=== PATIENT | female | born 1950 | race Caucasian/White ===

== ENCOUNTER 2016-10-24 12:40 | Inpatient (IN) | payer OTHER, BC ==
[~2016-10-24] VITALS: Ht 167.6 cm; Wt 142.0 kg
[2016-10-24] VITALS (12 sets, daily range): BP systolic 98–177; BP diastolic 34–147
--- NOTE | ~2016-10-24 | HC ---
[facility] [place] [address] CONSULTATION Name: CECILY BUSH Room #: 239- ADM IN M.R.#: [id number] Admission: 10/24/16 Attend Phys: Waldemar Cleary MD Discharge: Date of : 46 Report #: [id number] THIS REPORT FOR: //name// CC: Waldemar Roa REASON FOR CONSULTATION: I was asked to evaluate concerning sepsis in the setting of MRSA bacteremia and critical aortic stenosis. HISTORY OF PRESENT ILLNESS: The patient was a 66-year-old who presents from [facility] where she is being treated for Staphylococcus aureus bacteremia in the setting of aortic stenosis. She does have morbid obesity, chronic venous stasis disease with lower extremity wounds. She was on vancomycin approximately 3 weeks into her treatment course. She became more confused. She was in the emergency room where there was concern for congestive heart failure, possible urinary tract infection and she was placed on the floor only to be transferred to to the ICU for further treatment. Her pCO2 was increased significantly and she is placed on BiPAP. Once on BiPAP, she has stabilized some and calmed down from her confusional state. It is noted that on the 20 of October, laboratory studies showed a hemoglobin of 8.6, WBC of 5.9, platelet count 159,000. Creatinine was 1.1, sedimentation rate 24, vancomycin trough was 18.9. There has been no cough or sputum production. No nausea, vomiting or diarrhea. She does have an indwelling Mcdonough catheter. MEDICATIONS: As noted on her MAR including the vancomycin. Meropenem was added today. PAST MEDICAL HISTORY: Aortic stenosis, atrial fibrillation, diabetes, cholecystectomy, venous stasis disease, osteoarthritis, chronic kidney disease, gastroesophageal reflux, gastritis, anemia of chronic disease, morbid obesity, claustrophobia, anxiety, obstructive sleep apnea, chronic pain, hypertension, diastolic congestive heart failure. FAMILY HISTORY: Noncontributory. SOCIAL HISTORY: She has been residing in the nursing home unit, nonsmoker, no significant alcohol intake. REVIEW OF SYSTEMS: As noted above. The patient was unable to give any further details. PHYSICAL EXAMINATION: VITAL SIGNS: She was afebrile. Vital signs were stable. GENERAL: She was on BiPAP. She was confused. Morbidly obese. HEENT: Unremarkable. NECK: Supple. NEUROLOGIC: Nonfocal. [address] [address] CONSULTATION Name: CECILY BUSH Room #: 239-[facility] IN M.R.#: [id number] Admission: 10/24/16 Attend Phys: Waldemar Cleary MD Discharge: Date of : 48 Report #: [id number] LUNGS: Few crackles heard in the bases posteriorly. HEART: Regular with a harsh systolic murmur heard at left sternal border. ABDOMEN: Obese, soft, nontender, no hepatosplenomegaly or mass. GENITOURINARY: She had indwelling Mcdonough catheter. EXTREMITIES: She had changes of chronic venous stasis to both lower extremities with shallow ulcerations. No evidence of cellulitis or purulent drainage. LABORATORY STUDIES: Sodium 143, potassium 4.9, bicarbonate of 44, creatinine 1.1, bilirubin 1.3, GFR was 49, lactate 1.2, troponin 0.06. BNP 17,329. Hemoglobin 7.4, WBC 4.4, platelet count 87,000 with 72% segs, 14% lymphs. TSH 0.8. Urinalysis; many wbc's, few bacteria, yeast present. ABG on 5 liters showed a pO2 of 89, pCO2 of 77, pH 7.36, lactate 1.4. Blood and urine cultures pending. IMAGING: Chest x-ray; bilateral infiltrates, right pleural effusion, mass lesion upper lateral aspect of the left lung. Venous ultrasound of the lower extremities negative for DVT. CT scan of the head; negative intracranial process, mild to moderate left mastoid fluid. CT scan of the chest and abdomen is currently pending. IMPRESSION: A 66-year-old with bilateral pulmonary infiltrates, evidence of cystitis, hypercapnia with confusional state in the setting of treatment for methicillin-resistant Staphylococcus aureus bacteremia and critical aortic stenosis. I am suspicious that we may be dealing with endocarditis. Other issue is her chest x-ray which shows concerning left lung mass lesion. Could also be dealing with aspiration nosocomial pneumonia. The patient has significant comorbidities. She is critically ill at this point in time considering her complex medical comorbidities. RECOMMENDATION: We will continue ICU monitoring. Await CT scan report. Obtain echocardiogram. Await repeat blood cultures. Continue broad-spectrum antibiotic therapy with vancomycin and meropenem along with fluconazole due to yeast identified in her urine. I have discussed with nursing staff at the bedside. Chart was reviewed including the medical record from [facility], pulmonary and GI services along with her records from nursing home unit. <ELECTRONICALLY SIGNED> By: Ovidio Boles MD 10/27/16 1212 [id number] Ovidio Boles MD /nt
--- NOTE | ~2016-10-24 | HC ---
[facility] [place] [address] CONSULTATION Name: CECILY BUSH Room #: 419-P [facility] IN M.R.#: [id number] Admission: 10/24/16 Attend Phys: Waldemar Cleary MD Discharge: Date of : 48 Report #: [id number] THIS REPORT FOR: //name// CC: Waldemar Roa DATE OF SERVICE: 10/24/2016 REASON FOR CONSULTATION: Hypercapnic respiratory failure. Forty minutes critical care time. IMPRESSION: 1. Hypercapnic respiratory failure. 2. Likely sepsis. 3. Methicillin-resistant Staphylococcus aureus bacteremia. 4. Critical aortic stenosis. 5. Atrial fibrillation. 6. Obstructive sleep apnea. 7. Chronic venous insufficiency. 8. Diabetes. HISTORY OF PRESENT ILLNESS: A 66-year-old female comes in with history of Staphylococcus aureus bacteremia, critical aortic stenosis, atrial fibrillation, comes in with decreased mental status. No definite chest pain, shortness of breath. She is confused. Sister is in the room. MEDICATIONS: Includes aspirin, Lasix, prednisone, Tradjenta, vancomycin, Eliquis, metoprolol. ALLERGIES: PENICILLIN. FAMILY HISTORY: Noncontributory. SOCIAL HISTORY: Negative current tobacco or ETOH. REVIEW OF SYSTEMS: Atrial fibrillation, aortic stenosis, lymphedema, wounds, cellulitis, UTI, osteoarthritis, CKD, pneumonia, respiratory failure, [place], anemia, type 2 diabetes, morbid obesity, claustrophobia, anxiety, chronic pain, atrial fibrillation, diastolic CHF. PHYSICAL EXAMINATION: VITAL SIGNS: On exam, temperature 98.2, pulse 65, respirations 20, BP 124/74. EYES: Negative icterus. NECK: Negative JVD. LUNGS: Decreased breath sounds, right greater than left. [facility] [address] [place] [address] CONSULTATION Name: CECILY BUSH Room #: 419-P ADM IN M.R.#: [id number] Admission: 10/24/16 Attend Phys: Waldemar Cleary MD Discharge: Date of : 46 Report #: [id number] HEART: Irregular with murmur. ABDOMEN: Bowel sounds present. EXTREMITIES: Showed legs wrapped. Positive edema and wounds noted, difficult to discuss with the patient, feels like she has seen me in the past. We discussed this. LABORATORY DATA: Bacteria 1-9, wbc greater than 25. Chest x-ray showed bilateral infiltrates and right effusion, questionable mass. BUN 32, creatinine 1.1, albumin 2.9. ProBNP 17,329. White count 4.4, hemoglobin 7.8, platelets 87, pH 7.36, pCO2 of 77, pO2 of 90 on 5 liters, lactate 1.43. Appreciate the opportunity to assist in the care of your patient. By: [id number] Parul Scanlon MD /nt
--- NOTE | ~2016-10-24 | H ---
[facility] [place] [address] HISTORY AND PHYSICAL Name: CECILY BUSH Room #: 239-P ADM IN M.R.#: [id number] Admission: 10/24/16 Attend Phys: Waldemar Cleary MD Discharge: Date of : 48 Report #: [id number] THIS REPORT FOR: //name// CC: Waldemar Roa DATE OF SERVICE: 10/25/2016 CHIEF COMPLAINT: This is a patient 66 years of age, well known to my service with chronic respiratory failure HISTORY OF PRESENT ILLNESS: This is a patient who has been off and on over at [facility] and really it is total care, is really not able to function in an independent living situation and has a known history of critical aortic stenosis, but has not been a candidate for intervention due to many of the psychosocial issues that we have been dealing with now for many months. The patient was recently in the hospital and had high-grade MRSA bacteremia. Etiology probably was lower extremity open wounds from venous insufficiency. She probably had an element of pneumonia. She has underlying sleep apnea and she again got ill over at the detention. We tried to manage her there as best we could, but I viewed her situation yesterday, that impending respiratory failure was about ready to happen and she was transferred over here and placed in the ICU. PAST MEDICAL HISTORY: Noteworthy for those findings in the HPI, morbid obesity, obstructive sleep apnea, critical aortic stenosis, chronic venous insufficiency with ulceration and very poor insight into her situation. MEDICATIONS: List is well documented on the record. FAMILY HISTORY: Noncontributory. SOCIAL HISTORY: She is currently living at [facility] has very limited family and friends and support. REVIEW OF SYSTEMS: Not obtainable. PHYSICAL EXAMINATION: GENERAL: Shows her to be awake, but confused. She is currently on BiPAP. CHEST: Diminished. CARDIOVASCULAR: Shows a regular rate and rhythm with occasional ectopic. ABDOMEN: Soft and nontender, without hepatosplenomegaly. EXTREMITIES: Showed the changes of chronic venous insufficiency with ulceration. She had some irritation on her buttock as well. ASSESSMENT: [facility] [address] [place] [address] HISTORY AND PHYSICAL Name: CECILY BUSH Room #: [facility] IN M.R.#: [id number] Admission: 10/24/16 Attend Phys: Waldemar Cleary MD Discharge: Date of : 48 Report #: [id number] 1. This is a patient with respiratory failure, on multifactorial basis and I suspect overall terminal condition, but currently she wishes to have full resuscitative support. She also has high-grade MRSA bacteremia which was being controlled with IV vancomycin and she was in the middle course. 2. Critical aortic stenosis. 3. Chronic venous insufficiency with lower extremity wounds. Overall I view her care as terminal, but we are doing what we can to manage her as best we can. By: [id number] Claudio Boles MD /
--- NOTE | ~2016-10-24 | HC ---
[facility] [place] [address] [place] [address] CONSULTATION Name: CECILY BUSH Room #: 239-P ADM IN M.R.#: [id number] Admission: 10/24/16 Attend Phys: Waldemar Cleary MD Discharge: Date of : 48 Report #: [id number] THIS REPORT FOR: //name// CC: Waldemar Roa DATE OF SERVICE: 10/24/2016 REASON FOR CONSULTATION: The patient is a 66-year-old woman admitted through the emergency room with increasing shortness of breath and anemia with Hemoccult positive stools. HISTORY OF PRESENT ILLNESS: This patient apparently recently has been having confusion and hallucinations. She is awake and she is alert, but she makes no sense whatsoever. I did obtain some history from a sister sitting at bedside. This 66-year-old woman was admitted recently at [facility] because of worsening of lower extremity wounds. She was treated at [place] and transferred to [facility] where she has been undergoing care. Family got a phone call today that she was more short of breath and she was transferred to [facility] where she was subsequently admitted. Here, she was found to have a hemoglobin of 7.8 with an MCV of 93.1. On the , she had a hemoglobin of 8.2 and on the she had a hemoglobin of 8.6. Unfortunately, there is a little previous history known. As best the sister knows, she has never had any stomach or ulcer problems and she has never had any evaluation with upper endoscopy and colonoscopy: The patient is not able to provide any useful information, so it is not clear whether she has had any symptoms whatsoever. In addition, there are some records from [facility] indicates the patient has critical aortic stenosis. She has not been a candidate for intervention in the past. Also, she was treated at [facility] for methicillin-resistant Staphylococcus aureus bacteremia. PAST MEDICAL HISTORY: Leg wounds, atrial fibrillation, shortness of breath, diabetes. PAST SURGICAL HISTORY:. Cholecystectomy. ALLERGIES: PENICILLINS. TRANSFER MEDICINES: Hydrocodone 7.5/325, DuoNeb, Eliquis, aspirin 81 mg daily, furosemide 40 mg daily, metoprolol 25 mg daily, miconazole topically b.i.d., Tradjenta 5 mg daily, prednisone 10 mg daily, vancomycin 1.25 g IV daily. [address] [address] CONSULTATION Name: CECILY BUSH Room #: 239-P [facility] IN M.R.#: [id number] Admission: 10/24/16 Attend Phys: Waldemar Cleary MD Discharge: Date of : 46 Report #: [id number] FAMILY HISTORY: No known family history of colon cancer. SOCIAL HISTORY: She has never smoked. She drank alcohol in the past, but according to the sister, she never had an alcohol problem. REVIEW OF SYSTEMS: Unobtainable due to the patient's confusion. PHYSICAL EXAMINATION: GENERAL: The patient a morbidly obese woman in no acute distress. She is resting comfortably on the ER carts. She is awake and alert, but she is confused. VITAL SIGNS: Blood pressure 124/74, pulse 65. HEENT: Anicteric. Pupils equal and round. Oropharynx clear. NECK: Supple. CHEST: Clear anteriorly. HEART: Regular rate and rhythm, normal S1 and S2. ABDOMEN: Morbidly obese, normal bowel sounds, soft, nontender, without hepatosplenomegaly or masses. RECTAL: Not done. EXTREMITIES: Bilateral edema. She has bandages on both lower extremities, which were not removed. NEUROLOGIC: She is moving all 4 extremities. She is awake, alert, but confused. LABORATORY DATA: Hemoglobin as noted above. Sodium, potassium, and chloride are normal. CO2 is 44. BUN is 32, creatinine 1.1. Total bilirubin is 1.3. AST and ALT are normal. Alkaline phosphatase normal. BNP is 17,329. Albumin is 2.9. IMAGING: Chest x-ray reveals bilateral infiltrates, thought to represent pneumonia. There is a questionable mass lesion at the upper left aspect of the left lung. She just left the ER department to go to radiology for CT. ASSESSMENT: 1. Normochromic anemia with Hemoccult-positive stools. 2. Altered mental status. 3. Critical aortic stenosis. 4. Shortness of breath. 5. Morbid obesity. 6. Leg wounds. 7. Atrial fibrillation, on Eliquis. RECOMMENDATIONS: 1. Hold Eliquis. 2. Monitor hemoglobin. 3. Prone pump inhibitor. [address] [address] CONSULTATION Name: CECILY BUSH Room #: 239-P ADM IN M.R.#: [id number] Admission: 10/24/16 Attend Phys: Waldemar Cleary MD Discharge: Date of : 46 Report #: [id number] 4. Consider upper endoscopy when safe to do so, may be difficult with her valvular heart disease and her shortness of breath and altered mental status. 5. I think it is unlikely we would ever be able to do a colonoscopy on this patient. By: [id number] [id number] Elliot Mccord MD /nt
--- NOTE | ~2016-10-24 | EKG ---
[address] [address] ELECTROCARDIOGRAM REPORT Name: CECILY BUSH Room #: 239-P ADM IN M.R.#: [id number] Admission: 10/24/16 Attend Phys: Waldemar Cleary MD Discharge: Date of : 46 Report #: [id number] THIS REPORT FOR: //name// [facility] ED Test Date: 2016-10-24 Test Time: 13:16:06 Pat Name: CECILY BUSH Department: Room: 239 Gender: F Rn Cardiac: VAL : 1950 Requested By: Frandy Gomez Order Number: [id number] MD: Samir Quinones Measurements Intervals [place] Rate: 62 P: MD: QRS: 39 QRSD: 85 T: 43 QT: 397 QTc: 404 Interpretive Statements Atrial fibrillation Ventricular premature complex No previous ECG available for comparison Electronically Signed On 10-25-2016 9:51:27 CDT by Samir Quinones [email or web address] <ELECTRONICALLY SIGNED> By: Samir Quinones MD, [facility] 10/25/16 0951 1316 1316 Samir Quinones MD, FACC /EPI
--- NOTE | ~2016-10-24 | 2DMMODE ---
[facility] [address] [place] [address] 2 D/M-MODE ECHOCARDIOGRAM Name: CECILY BUSH Room #: 239-P ADM IN M.R.#: [id number] Admission: 10/24/16 Attend Phys: Rani Lofton Discharge: Date of : 46 Date of Service: 10/25/16 1119 Report #: [id number] THIS REPORT FOR: //name// APPROVED REPORT Study performed: 10/25/2016 09:52:09 EXAM: Comprehensive 2D, Doppler, and color-flow Echocardiogram Patient Location: Bedside Room #: 239 Status: on-call BSA: 2.42 HR: 84 bpm BP: 136/95 mmHg Rhythm: Atrial Fibrillation Other Information Study Quality: Adequate Risk Factors: Cardiac Risk Factors: DM Indications Aortic Valve Disease COPD Atrial Fibrillation Sepsis 2D Dimensions LVEF(%): 45.00 (>50%) IVSd: 16.09 (7-11mm) LVOT Diam: 19.00 (18-24mm) LVDd: 48.93 mm PWd: 15.37 (7-11mm) Ascending Ao: 32.11 (22-36mm) LVDs: 39.10 (25-40mm) Aortic Root: 26.84 mm Volumes Left Atrial Volume (Systole) Single Plane 4CH: 98.70 mL Single Plane 2CH: 82.06 mL LA ESV Index: 41.00 mL/m2 Aortic Valve AoV Peak Ant.: 3.54 m/s AO Peak Gr.: 52.86 mmHg LVOT Max P.88 mmHg AO Mean Gr.: 31.68 mmHg LVOT Mean P.29 mmHg [facility] [address] [place] [place] [address] 2 D/M-MODE ECHOCARDIOGRAM Name: CECILY BUSH Room #: 239-P [facility].#: [id number] Admission: 10/24/16 Attend Phys: Rani Lofton Discharge: Date of : 46 Date of Service: 10/25/16 1119 Report #: [id number] AO V2 Mean: 2.55 m/s LVOT Max V: 0.98 m/s AO V2 VTI: 79.46 cm LVOT Mean V: 0.70 m/s BEVERLY (VTI): 0.80 cm2 LVOT V1 VTI: 22.74 cm BEVERLY Vmax: 0.78 cm2 SV (LVOT): 63.94 mL Pulmonary Valve PV Peak Ant.: 1.13 m/s PV Peak Gr.: 5.11 mmHg Tricuspid Valve TR Peak Ant.: 3.53 m/s RAP Estimate: 10.00 mmHg TR Peak Gr.: 50.25 mmHg PA Pressure: 60.00 mmHg Left Ventricle The left ventricle is normal size. There is normal LV segmental wall motion. Mild to moderate concentric left ventricular hypertrophy. Left ventricular systolic function is mildly decreased. LVEF is 55% This study is not technically sufficient to allow evaluation of the LV diastolic function due to atrial fibrillation. Right Ventricle Right ventricle is dilated. The right ventricular systolic function is normal. Atria Left atrium is mild to moderately dilated. Right atrium is dilated. Aortic Valve Aortic valve is calcified, probably trileaflet. Trace aortic regurgitation. Moderate to severe aortic stenosis. Aortic Valve Area is 0.8cm2. Calculated aortic valve area is 0.8 cm2 with maximum pressure gradient of 89 mmHg and mean pressure gradient of 56 mmHg. Mitral Valve Moderate mitral annular calcification. Mild to moderate mitral regurgitation. No evidence of mitral valve stenosis. Tricuspid Valve The tricuspid valve is normal in structure. Moderate to severe tricuspid regurgitation. Pulmonary Artery pressure is 60mmHg. Pulmonic Valve [address] [address] 2 D/M-MODE ECHOCARDIOGRAM Name: CECILY BUSH Room #: 239-P [facility] IN .R.#: [id number] Admission: 10/24/16 Attend Phys: Rani Lofton Discharge: Date of : 46 Date of Service: 10/25/16 1119 Report #: [id number] The pulmonary valve is normal in structure. Trace to mild pulmonic regurgitation. Great Vessels The aortic root is normal in size. IVC is dilated and collapses <50% with inspiration. Pericardium There is no pericardial effusion. <Conclusion> Normal global left ventricular function LVEF is 55%. Normal LV segmental wall motion. Right ventricle is dilated. Left atrium is mild to moderately dilated. Right atrial enlargement Aortic valve is calcified, probably trileaflet. Calculated aortic valve area is 0.8 cm2 with maximum pressure gradient of 89 mmHg and mean pressure gradient of 56 mmHg, consistent with severe aortic stenosis. Moderate mitral annular calcification. Mild to moderate mitral regurgitation. Pulmonary artery pressure of 60mmHg There is no pericardial effusion. <ELECTRONICALLY SIGNED> By: Samir Quinones MD, FACC 10/25/16 1119 1119 1119 Samir Quinones MD, FACC /INF
--- NOTE | ~2016-10-24 | HC ---
[facility] [place] [address] CONSULTATION Name: CECILY BUSH Room #: 453-P [facility] [place] .R.#: [id number] Admission: 10/24/16 Attend Phys: Waldemar Cleary MD Discharge: Date of : 46 Report #: [id number] THIS REPORT FOR: //name// CC: Waldemar Roa DATE OF SERVICE: 10/28/2016 PERSONAL PHYSICIAN: Keven Boles M.D. CHIEF COMPLAINT: Left leg ulcer. HISTORY OF PRESENT ILLNESS: This is a 66-year-old white female who is morbidly obese who has currently been admitted for chronic respiratory failure. I have been asked to assist in the care of ulcerations on her left lower extremity. The patient states she has a history of chronic ulcerations on bilateral lower extremities, but the right one has essentially healed. The patient has chronic venous insufficiency with edema and at this time is currently refusing any type of compressive therapy. The nursing staff stated on admission there was a question whether she had a stage 2 decubitus ulcer on her sacrococcygeal region; however, the patient at this point in time states that that is healed and is refusing to turn over for us to evaluate it. I have been asked to assist in the care of these ulcerations while she is here in the hospital. PAST MEDICAL HISTORY: Significant for morbid obesity, obstructive sleep apnea, critical aortic stenosis, chronic venous insufficiency with edema and ulcerations. CURRENT MEDICATIONS: Multiple. I reviewed his medication list. DRUG ALLERGIES: PENICILLIN. SOCIAL HISTORY: The patient currently lives in a skilled facility and does not smoke or drink alcohol. FAMILY HISTORY: Not pertinent to current medical condition. REVIEW OF SYSTEMS: CONSTITUTIONAL: The patient denies fevers or chills. NEUROLOGIC: The patient admits to overall generalized weakness but no isolated weakness in arms or legs. EYES: No complaints. ENT: No complaints. CARDIAC: The patient has chronic lower extremity edema but denies chest pain or palpitations. RESPIRATORY: The patient is currently having shortness of breath and is on [facility] [place] [employer] [place] [address] CONSULTATION Name: CECILY BUSH Room #: [address] [place] [address] [place] [facility].#: [id number] Admission: 10/24/16 Attend Phys: Waldemar Cleary MD Discharge: Date of : 46 Report #: [id number] oxygen but denies cough or wheezes. GASTROINTESTINAL: The patient denies nausea, vomiting or abdominal pain. GENITOURINARY: The patient denies urgency or frequency. MUSCULOSKELETAL: No complaints. SKIN: There are open ulcerations on her left lower extremity with chronic venous stasis dermatitis. PHYSICAL EXAMINATION: VITAL SIGNS: Temperature 37.1, and rest of the vital signs are stable. GENERAL: This is an alert and oriented x 3, morbidly obese white female who is in mild respiratory distress but otherwise does not appear to be in any acute distress. HEENT: Normocephalic and atraumatic. Mucous membranes are moist. Pupils are round. Sclerae are white. NECK: Without JVD or masses. BACK: Nontender. LUNGS: Slightly diminished breath sounds heard throughout with scattered wheezes heard throughout. CHEST: Nontender. HEART: Regular with a 3/6 systolic ejection murmur. ABDOMEN: Obese, nontender, without organomegaly. EXTREMITIES: The patient has 2+ edema in bilateral lower extremities. The left lower extremity has stasis dermatitis but no open ulcerations. The right lower extremity has a small ulceration on the lateral aspect, which is clean and granulating with serosanguineous drainage without odor. Periulcer is intact without signs of erythema, warmth or cellulitis. Distal pulses are 1+ and symmetric. Bilateral heels are intact. Rest of the foot and toes are intact. NEUROLOGIC: Cranial nerves 2-12 are grossly intact. Motor and sensory grossly intact. Sacrococcygeal area is not evaluated given the fact that the patient will not roll over to let us evaluate this area. LABORATORY VALUES: White count 4.9, hemoglobin 9.7. BUN 33, creatinine 1.4, albumin 2.9. IMPRESSION: 1. Chronic ulceration, right lower extremity, consistent with a venous ulceration -- present on admission. 2. Chronic venous insufficiency with edema. 3. Morbid obesity. 4. Chronic respiratory failure with acute exacerbation. 5. Protein-calorie malnutrition -- moderate with albumin of 2.9. 6. Generalized debility. PLAN: At this point in time, the patient states she will allow us to place a bordered foam over her right lower extremity ulcerations to be changed Thursday, Thursday and Thursday. The patient is refusing [place] [id number] CONSULTATION Name: CECILY BUSH Room #: 453-P [facility] M.R.#: [id number] Admission: 10/24/16 Attend Phys: Waldemar Cleary MD Discharge: Date of : 46 Report #: [id number] control of the edema at this time but states that she would possibly consider Tubigrips. The wound care nurse will come back later today to attempt to place those on her. I encouraged her to elevate her legs as much as possible. At some point in time, I have requested that I would like to review her sacrococcygeal region to ____ the ulcerations. She said that she would consider that. We will also try to maximize the patient's oral supplementation of protein for healing and continue all other current medications, and we will continue to follow her while she is here. By: [id number] Pedro Gasca MD /byron
--- NOTE | ~2016-10-24 | D ---
[facility] [place] [address] DISCHARGE SUMMARY Name: CECILY BUSH Room #: 453-P [facility] M.R.#: [id number] Admission: 10/24/16 Attend Phys: Waldemar Cleary MD Discharge: 10/30/16 Date of : 46 Report #: [id number] THIS REPORT FOR: //name// CC: Waldemar Roa FINAL DIAGNOSES: 1. Moffz-bq-fjlrbyy hypercapnic respiratory failure. 2. Obstructive sleep apnea. 3. Morbid obesity. 4. Bacteremia. 5. Aortic stenosis. 6. Biceg-pm-nlevsjx diastolic heart failure. HOSPITAL COURSE: The patient was admitted from her skilled facility with altered mental status. She was found to have hypercapnic respiratory failure, but was refusing BiPAP. This was tried multiple times and conversations with the pulmonary service. She continued antibiotics for bacteremia, which was known. She also has known severe aortic stenosis, but is not a candidate for any type of treatment. She was not responding to usual care. Conversations were held with pulmonary service and her sister and close friend as she was refusing respiratory therapy. Ultimately, their decision was DNR status and hospice care. Arrangements were made for her to transfer to an inpatient hospice facility. She has a terminal cardiopulmonary condition. PHYSICAL EXAMINATION: GENERAL: On the day of discharge, she was somnolent, marginally arousable. LUNGS: Clear with shallow respirations. HEART: Regular, without murmur. ABDOMEN: Obese, soft. Normoactive bowel sounds. EXTREMITIES: With 1+ edema. DISPOSITION: She is being transferred to [facility] to the care of their in-house physician. All medications currently will be stopped. We have recommended morphine and Ativan for symptom control. She has terminal lung disease. <ELECTRONICALLY SIGNED> By: Waldemar Cleary MD 10/31/16 1021 [id number] Waldemar Cleary MD /nt
[2016-10-24 13:06] LABS: URINE BILIRUBIN NEGATIVE (Negative); URINE BLOOD 2+ (Negative); URINE COLOR YELLOW; URINE GLUCOSE-RANDOM* NEGATIVE (Negative); URINE KETONES NEGATIVE (Negative); URINE LEUKOCYTES-REFLEX 3+ (Negative); URINE PROTEIN (DIPSTICK) NEGATIVE (Negative); URINE UROBILINOGEN 0.2 E.U./dl (0.2-1.0)
[2016-10-24 13:15] LABS: ABSOLUTE NEUTROPHILS 3.1 thou/uL (1.4-8.2); BASOPHILS 0.8 % (0.0-2.0); EOSINOPHILS 1.5 % (0.0-3.0); HEMATOCRIT 25.7 % (37.0-47.0); HEMOGLOBIN 7.8 gm/dL (12.0-15.0); LYMPHOCYTES 14.2 % (24.0-44.0); MCH 28.2 pg (26.0-34.0); MCHC 30.3 g/dL (28.0-37.0); MCV 93.1 fL (80.0-100.0); MONOCYTES 11.5 % (1.0-8.0); RBC 2.76 mil/uL (4.20-5.00); RDW 18.3 % (10.5-14.5); WBC 4.4 thou/uL (4.0-11.0)
[2016-10-24 13:21] LABS: MANUAL DIFF NO
[2016-10-24 13:28] LABS: CASTS None Seen /LPF (None Seen); SQUAMOUS 0-3 Few /LPF (0-3); URINE WBC-REFLEX >25 Many /HPF (0-5)
[2016-10-24 13:29] LABS: CRYSTALS None Seen /LPF (None Seen); URINE RBC 0-2 Rare /HPF (0-2); YEAST-REFLEX Present (None Seen)
[2016-10-24 13:30] LABS: ANION GAP < 0 mmol/L (7-16); BUN 32 mg/dL (7-18); CALCIUM 8.9 mg/dL (8.5-10.1); CHLORIDE 101 mmol/L (98-107); CO2 44 mmol/L (21-32); CREATININE 1.1 mg/dL (0.6-1.0); GLUCOSE 126 mg/dL (74-106); POTASSIUM 4.9 mmol/L (3.5-5.1); SODIUM 143 mmol/L (136-145)
[2016-10-24 13:38] LABS: ALBUMIN 2.9 g/dL (3.4-5.0); ALKALINE PHOSPHATASE 67 U/L (46-116); SGOT 16 U/L (15-37); SGPT 16 U/L (30-65); TOTAL BILIRUBIN 1.3 mg/dL (<0.1-1.0); TOTAL PROTEIN 6.9 g/dL (6.4-8.2); TROPONIN-I 0.06 ng/mL (<0.04-0.07)
[2016-10-24] MEDS ORDERED: ASPIR 8181 MG PO ×2 (13:43→21:36)
[2016-10-24] MEDS ORDERED: FUROSEMIDE 40 M40 M1 PO (13:44)
[2016-10-24] MEDS ORDERED: PREDNISONE10 MG PO (13:46)
[2016-10-24] MEDS ORDERED: TRADJENTA5 MG ×2 (13:46→21:37)
[2016-10-24] MEDS ORDERED: ELIQUIS5 MG PO ×2 (13:48→21:40)
[2016-10-24] MEDS ORDERED: VANCOMYCIN1.25 GM/22 IV (13:48)
[2016-10-24] MEDS ORDERED: LOPRESSOR25 PO ×2 (13:49→21:40)
[2016-10-24] MEDS ORDERED: MICRO-GUARD85 GM TP (13:50)
[2016-10-24] MEDS ORDERED: HYDROCODON-ACE1 EAC8 PO ×2 (13:51→21:47)
[2016-10-24] MEDS ORDERED: DUONEB 2.5-0.5 M3 ML INH ×2 (13:51→22:35)
[2016-10-24 14:01] LABS: ANISOCYTOSIS 2+
[2016-10-24 14:02] LABS: PLATELET COUNT 87 thou/uL (150-400); POLYCHROMASIA OCCASIONAL
[2016-10-24 15:14] LABS: ABG SAMPLE TYPE ARTERIAL; HCO3 42.7 mmol/L (22.0-26.0); LACTATE 1.43 mmol/L (0.5-2.0); O2Hb 95.4 % (92.0-98.0); PO2 89.8 mmHg (80.0-100.0); sO2 96.1 % (92.0-98.0); tCO2 45.1 mmol/L (24.0-30.0)
[2016-10-24 15:15] LABS: PCO2 77.4 mmHg (35.0-45.0); STICK SITE R.RADIAL
[2016-10-24 16:49] LABS: APTT 30.3 Seconds (24.5-32.8); INR 1.4; PROTIME 13.8 Seconds (9.3-11.4)
[2016-10-24 19:47] LABS: HEMATOCRIT 24.1 % (37.0-47.0); HEMOGLOBIN 7.4 gm/dL (12.0-15.0)
[2016-10-24 20:09] LABS: % SATURATION 10 % (20-39); IRON 27 ug/dL (50-170); TIBC 260 ug/dL (250-450); UIBC 233 ug/dL
[2016-10-24 20:36] LABS: FOLIC ACID 16.8 ng/mL (8.6-58.9)
[2016-10-24] MEDS ORDERED: SILVADENE20 GM TP (21:34)
[2016-10-24] MEDS ORDERED: EUCERIN CREME57 GM TP (21:35)
[2016-10-24] MEDS ORDERED: LASIX 40 MG TAB40 M2 PO (21:36)
[2016-10-24] MEDS ORDERED: DESENEX85 GM TP (21:42)
[2016-10-24] MEDS ORDERED: ATIVAN0.5 MG PO (22:35)
[2016-10-25] VITALS (50 sets, daily range): BP systolic 81–163; BP diastolic 33–114
[2016-10-25 00:42] LABS: HEMATOCRIT 23.3 % (37.0-47.0); HEMOGLOBIN 7.1 gm/dL (12.0-15.0)
[2016-10-25 02:06] LABS: GLYCOHEMOGLOBIN (HGB A1C) 5.6 % (4.8-5.6)
[2016-10-25 04:20] LABS: ABG SAMPLE TYPE ARTERIAL; BE(vivo) 12.4 mmol/L (-2 to +3); HCO3 39.8 mmol/L (22.0-26.0); LACTATE 1.14 mmol/L (0.5-2.0); O2(CT) 12.2 mL/dL (15.0-23.0); PO2 103.8 mmHg (80.0-100.0); pH 7.363 (7.360-7.450); sO2 97.3 % (92.0-98.0)
[2016-10-25 04:21] LABS: PCO2 71.5 mmHg (35.0-45.0); STICK SITE R.RADIAL
[2016-10-25 09:21] LABS: ABSOLUTE NEUTROPHILS 3.5 thou/uL (1.4-8.2); BASOPHILS 0.6 % (0.0-2.0); EOSINOPHILS 2.3 % (0.0-3.0); HEMATOCRIT 28.7 % (37.0-47.0); HEMOGLOBIN 8.9 gm/dL (12.0-15.0); LYMPHOCYTES 11.9 % (24.0-44.0); MANUAL DIFF NO; MCH 27.9 pg (26.0-34.0); MCV 90.2 fL (80.0-100.0); MONOCYTES 11.1 % (1.0-8.0); PLATELET COUNT 76 thou/uL (150-400); POLYS 74.1 % (36.0-66.0); RBC 3.18 mil/uL (4.20-5.00); RDW 18.8 % (10.5-14.5); WBC 4.7 thou/uL (4.0-11.0)
[2016-10-25 09:33] LABS: ALBUMIN 2.7 g/dL (3.4-5.0); ALKALINE PHOSPHATASE 61 U/L (46-116); BUN 28 mg/dL (7-18); CALCIUM 8.5 mg/dL (8.5-10.1); CHLORIDE 104 mmol/L (98-107); CREATININE 1.2 mg/dL (0.6-1.0); GLUCOSE 93 mg/dL (74-106); POTASSIUM 4.4 mmol/L (3.5-5.1); SGOT 17 U/L (15-37); SGPT 12 U/L (30-65); SODIUM 146 mmol/L (136-145); TOTAL BILIRUBIN 1.6 mg/dL (<0.1-1.0); TOTAL PROTEIN 6.5 g/dL (6.4-8.2)
[2016-10-25 09:39] LABS: CO2 > 45 mmol/L (21-32)
[2016-10-26] VITALS (39 sets, daily range): BP systolic 89–140; BP diastolic 29–77
[2016-10-26 11:48] LABS: HEMATOCRIT 31.4 % (37.0-47.0); HEMOGLOBIN 9.5 gm/dL (12.0-15.0); MCH 28.2 pg (26.0-34.0); MCHC 30.3 g/dL (28.0-37.0); MCV 93.2 fL (80.0-100.0); RBC 3.37 mil/uL (4.20-5.00); RDW 18.3 % (10.5-14.5); WBC 5.1 thou/uL (4.0-11.0)
[2016-10-26 12:06] LABS: ALBUMIN 2.9 g/dL (3.4-5.0); ALKALINE PHOSPHATASE 65 U/L (46-116); ANION GAP < 0 mmol/L (7-16); BUN 26 mg/dL (7-18); CALCIUM 8.5 mg/dL (8.5-10.1); CHLORIDE 100 mmol/L (98-107); CO2 43 mmol/L (21-32); CREATININE 1.2 mg/dL (0.6-1.0); GLUCOSE 120 mg/dL (74-106); POTASSIUM 4.1 mmol/L (3.5-5.1); SGOT 17 U/L (15-37); SGPT 14 U/L (30-65); SODIUM 142 mmol/L (136-145); TOTAL BILIRUBIN 1.6 mg/dL (<0.1-1.0)
[2016-10-27] VITALS (20 sets, daily range): BP systolic 106–153; BP diastolic 40–115
[2016-10-28 04:59] VITALS: BP 115/98
[2016-10-28 07:44] LABS: HEMOGLOBIN 9.7 gm/dL (12.0-15.0); MCH 28.3 pg (26.0-34.0); MCHC 30.3 g/dL (28.0-37.0); MCV 93.6 fL (80.0-100.0); RBC 3.42 mil/uL (4.20-5.00); RDW 18.8 % (10.5-14.5); WBC 4.9 thou/uL (4.0-11.0)
[2016-10-28 08:09] VITALS: BP 127/60
[2016-10-28 12:01] VITALS: BP 122/77
[2016-10-28 12:33] LABS: CREATININE 1.4 mg/dL (0.6-1.0); POTASSIUM 5.1 mmol/L (3.5-5.1)
[2016-10-28 16:29] VITALS: BP 115/87
[2016-10-28 19:03] VITALS: BP 137/91
[2016-10-29 04:34] VITALS: BP 130/58
[2016-10-29 04:53] LABS: HEMATOCRIT 30.1 % (37.0-47.0); HEMOGLOBIN 9.1 gm/dL (12.0-15.0)
[2016-10-29 05:04] LABS: CALCIUM 8.8 mg/dL (8.5-10.1); CREATININE 1.5 mg/dL (0.6-1.0); POTASSIUM 4.4 mmol/L (3.5-5.1)
[2016-10-29 07:34] VITALS: BP 146/70
[2016-10-29 12:32] VITALS: BP 113/43
[2016-10-29 16:25] VITALS: BP 133/65
[2016-10-29 19:38] VITALS: BP 113/59
[2016-10-30 02:57] VITALS: BP 129/44
[2016-10-30 07:40] VITALS: BP 113/54
== END 2016-10-30 12:25 | disposition hospice, inpatient (51) | DRG 871 ==
LOC: ER 12:40 → 4E 14:41 → EROBS 14:41 → ICU 14:41 → 4E 16:06 → ICU 17:30 → 4W 10-27 16:09
PROVIDERS: Internal Medicine Geriatric Medicine; Internal Medicine Pulmonary Disease; Physician Assistant
PROC: 5A09457 Assistance with Respiratory Ventilation, 24-96 Consecutive Hours, Continuous Positive Airway Pressure (ICD-10-PCS; 2016-10-24)
PROC: 30233N1 Transfusion of Nonautologous Red Blood Cells into Peripheral Vein, Percutaneous Approach (ICD-10-PCS; principal; 2016-10-25)
DX: A41.9 Sepsis, unspecified organism (principal); J18.9 Pneumonia, unspecified organism; J96.22 Acute and chronic respiratory failure with hypercapnia; I50.33 Acute on chronic diastolic (congestive) heart failure; J44.0 Chronic obstructive pulmonary disease with (acute) lower respiratory infection; L97.919 Non-pressure chronic ulcer of unspecified part of right lower leg with unspecified severity; E44.0 Moderate protein-calorie malnutrition; Z68.43 Body mass index [BMI] 50.0-59.9, adult; I35.0 Nonrheumatic aortic (valve) stenosis; I48.91 Unspecified atrial fibrillation; I87.2 Venous insufficiency (chronic) (peripheral); E11.9 Type 2 diabetes mellitus without complications; G47.33 Obstructive sleep apnea (adult) (pediatric); D64.9 Anemia, unspecified; E66.01 Morbid (severe) obesity due to excess calories; F41.9 Anxiety disorder, unspecified; I11.0 Hypertensive heart disease with heart failure; G89.29 Other chronic pain; B95.62 Methicillin resistant Staphylococcus aureus infection as the cause of diseases classified elsewhere; N30.90 Cystitis, unspecified without hematuria; B96.5 Pseudomonas (aeruginosa) (mallei) (pseudomallei) as the cause of diseases classified elsewhere; B37.9 Candidiasis, unspecified; D69.6 Thrombocytopenia, unspecified; Z88.0 Allergy status to penicillin; Z90.49 Acquired absence of other specified parts of digestive tract; Z87.11 Personal history of peptic ulcer disease
CPT/HCPCS: 10045; 10203